=== PATIENT | female | born 1990 | race Caucasian/White ===

== ENCOUNTER 2017-01-27 11:46 | Observation (INO) | payer BC ==
[2017-01-27] VITALS (12 sets, daily range): BP systolic 117–136; BP diastolic 70–90; PULSE 74–95; TEMP 98.2–98.6
[~2017-01-27] VITALS: Ht 172.7 cm; Wt 51.4 kg
[2017-01-27] MEDS ORDERED: SINGULAIR 110 MG/TAB PO (12:47)
[2017-01-27] MEDS ORDERED: ZYRTEC5 MG PO (12:47)
[2017-01-27] MEDS ORDERED: MULTI VITAMINS1 TAB PO (12:47)
[2017-01-27] MEDS ORDERED: CALCIUM CARBON650 M2 (12:48)
[2017-01-27] MEDS ORDERED: Birth Control (12:49)
== END 2017-01-27 16:00 | disposition home or self-care (01) ==
LOC: COL.ER 11:46 → OB 13:28
DX: S31.41XA Laceration without foreign body of vagina and vulva, initial encounter (principal); S37.33XA Laceration of urethra, initial encounter; X58.XXXA Exposure to other specified factors, initial encounter; J45.909 Unspecified asthma, uncomplicated
CPT/HCPCS: J2405; J2704; J3010

== ENCOUNTER 2019-10-09 12:25 | Emergency (ER) | payer BC ==
[~2019-10-09] VITALS: Ht 172.7 cm; Wt 53.2 kg
[~2019-10-09 12:25] MED LIST: Birth Control; CALCIUM CARBON650 M2; MULTI VITAMINS1 TAB PO; SINGULAIR 110 MG/TAB PO; ZYRTEC5 MG PO
[2019-10-09 12:31] VITALS: TEMP 98
[2019-10-09 13:02] LABS: BASO % 0.5 % (0.0-2.0); EOS # 0.1 (0.0-0.7); EOS % 1.1 % (0-4.0); GRAN # 5.5 (1.4-6.5); GRAN % 70.2 % (42.2-75.2); HEMATOCRIT 44.7 % (37.0-47.0); HEMOGLOBIN 14.8 g/dl (12.5-16.0); LYMPH # 1.8 (1.2-3.4); LYMPH % 22.8 % (20.0-51.0); MEAN CELL VOLUME 87 fl (80.0-100.0); MEAN CORPUSCULAR HEMOGLOBIN 29 pg (27.0-31.0); MEAN CORPUSCULAR HGB CONC 33 g/dl (33.0-37.0); MEAN PLATELET VOLUME 8.8 fl (7.4-10.4); MONO # 0.4 (0.1-0.6); MONO % 5.3 % (1.7-9.3); PLATELET COUNT 240 K/mm3 (130-400); RED BLOOD COUNT 5.14 M/mm3 (4.10-5.30); REDCELL DISTRIBUTION WIDTH-CV 11.6 % (11.5-14.5)
[2019-10-09 13:03] LABS: COLLECTION METHOD CLEAN CATCH
[2019-10-09 13:15] LABS: MUCOUS Present /lpf; PH 5 (5-8); URINE APPEARANCE Hazy; URINE BACTERIA Rare /hpf; URINE BILIRUBIN Negative (NEGATIVE); URINE BLOOD 2+ (NEGATIVE); URINE COLOR Yellow; URINE GLUCOSE Negative (NEGATIVE); URINE KETONE 2+ (NEGATIVE); URINE LEUKOCYTE ESTERASE 1+ (NEGATIVE); URINE NITRATE Negative (NEGATIVE); URINE PROTEIN(semi-quant) Negative (NEGATIVE); URINE UROBILINOGEN Negative (NEGATIVE)
[2019-10-09 13:20] LABS: ALANINE AMINOTRANSFERASE 14 U/L (4-34); ALBUMIN 4.3 gm/dL (3.5-5.0); ALKALINE PHOSPHATASE 64 U/L (50-136); ANION GAP 9 mmol/L (7-16); AST,SGOT 27 U/L (15-37); BILIRUBIN,TOTAL 0.8 mg/dL (0.0-1.0); BLOOD UREA NITROGEN 14 mg/dL (7-17); C-REACTIVE PROTEIN < 0.5 mg/dL (0.0-0.9); CALCIUM 9.2 mg/dL (8.4-10.2); CARBON DIOXIDE 22 mmol/L (22-30); CHLORIDE 103 mmol/L (98-107); CREATININE, serum 0.76 (0.52-1.25); GLUCOSE 79 mg/dL (74-106); LIPASE 57 U/L (23-300); POTASSIUM 4.4 mmol/L (3.4-5.0); SODIUM 135 mmol/L (137-145); TOTAL PROTEIN 7.9 gm/dL (6.4-8.2)
[2019-10-09] MEDS ORDERED: MACROBID 1100 MG/CAP PO (14:35)
[2019-10-09] MEDS ORDERED: ZOFRAN ODT4 MG PO (14:35)
[2019-10-09 15:11] VITALS: BP 115/79; PULSE 89
== END 2019-10-09 15:17 | disposition home or self-care (01) ==
LOC: COL.ER 12:25
PROVIDERS: Emergency Medicine
DX: N39.0 Urinary tract infection, site not specified (principal); R11.2 Nausea with vomiting, unspecified; Z32.02 Encounter for pregnancy test, result negative; Z88.1 Allergy status to other antibiotic agents; Z88.8 Allergy status to other drugs, medicaments and biological substances
CPT/HCPCS: J2405; J7030; Q9967

== ENCOUNTER → 2019-12-16 | Outpatient (CLI) | payer BC, OTHER ==
[~2019-12-16] MED LIST changes: +MACROBID 1100 MG/CAP PO; +ZOFRAN ODT4 MG PO
== END ==
LOC: COL.RAD 07:30
DX: R10.11 Right upper quadrant pain (principal); R10.31 Right lower quadrant pain

== ENCOUNTER → 2019-12-23 | Outpatient (CLI) | payer OTHER, BC | LOC: COL.RAD 07:09 | DX: R10.11 Right upper quadrant pain (principal); R10.31 Right lower quadrant pain ==